=== PATIENT | female | born 1990 | race African-American/Black ===

== ENCOUNTER 2017-10-04 13:04 | Emergency (ER) | payer OTHER ==
[~2017-10-04] VITALS: Ht 162.6 cm; Wt 91.9 kg
[2017-10-04 15:17] LABS: CHLORIDE 105 mEq/L (99-109); POTASSIUM 3.7 mEq/L (3.7-5.4); SODIUM 136 mEq/L (136-147)
[2017-10-04 15:19] LABS: GLUCOSE 77 mg/dL (70-99)
[2017-10-04 15:23] LABS: CREATININE 0.8 mg/dL (0.6-1.3); GFR ESTIMATE (CALCULATED) > 59 mL/min/
[2017-10-04 15:24] LABS: UREA NITROGEN (BUN) 7 mg/dL (9-23)
[2017-10-04 15:26] LABS: HEMATOCRIT 34.1 % (36.0-46.0); MCH 20.3 PG (29.0-34.0); MCHC 29.3 G/DL (30.0-36.0); MCV 69.2 FL (83-99); PLATELET COUNT 401 K/uL (156-360); RBC DIS.WIDTH-CV 18.2 % (11.8-14.6); RBC DIS.WIDTH-SD 44.5 % (39-53); RED BLOOD COUNT 4.93 M/uL (3.80-5.20); WHITE BLOOD COUNT 7.7 K/uL (4.1-10.2)
[2017-10-04 15:52] LABS: QUANTITATIVE HCG 108085.9 MIU/ML
[2017-10-04 16:33] LABS: APPEARANCE CLEAR ((CLEAR)); BILIRUBIN NEGATIVE; BLOOD NEGATIVE; COLOR YELLOW ((YELLOW)); GLUCOSE (STRIP) NEGATIVE; KETONES 20; LEUKOCYTES SMALL; NITRITE NEGATIVE; PROTEIN (STRIP) NEGATIVE; SPECIFIC GRAVITY 1.017 (1.000-1.030); UROBILINOGEN 0.2 MG/DL (0.2-1.0)
[2017-10-04 16:42] LABS: BACTERIA RARE /HPF; EPITHELIAL CELLS RARE /HPF; HYALINE CASTS 0-5 /LPF; MUCUS TRACE /LPF; RED BLOOD CELLS 0-5 /HPF (0-5); WHITE BLOOD CELLS 0-5 /HPF (0-5)
[2017-10-04] MEDS ORDERED: ZOFRAN ODT4 MG PO (17:15)
[2017-10-04 18:06] VITALS: BP 126/60
== END 2017-10-04 18:07 | disposition home or self-care (01) ==
LOC: EME 13:04
PROVIDERS: Nurse Practitioner Family
DX: O21.9 Vomiting of pregnancy, unspecified (principal); O26.811 Pregnancy related exhaustion and fatigue, first trimester; O99.511 Diseases of the respiratory system complicating pregnancy, first trimester; J45.909 Unspecified asthma, uncomplicated; Z3A.08 8 weeks gestation of pregnancy; Z88.8 Allergy status to other drugs, medicaments and biological substances
CPT/HCPCS: 80048; 81003; 84702; 85027; 99281; 99284; J2405; J7030